=== PATIENT | female | born 1985 | race Caucasian/White ===

== ENCOUNTER → 2018-01-12 14:00 | Outpatient (CLI) | payer SELFPAY ==
--- NOTE | 2018-01-12 14:00 | DT_ITS ---
This patient was seen during an EMR downtime January 11, 2018 - January 18, 2018. This patient may have a combination of paper and electronic documentation or all paper documentation. All documentation is viewable within the e-chart portion of [facility] for each patient visit.
--- NOTE | 2018-01-12 14:00 | DT_ITS ---
This patient was seen during an EMR downtime January 11, 2018 - January 18, 2018. This patient may have a combination of paper and electronic documentation or all paper documentation. All documentation is viewable within the e-chart portion of [facility] for each patient visit.
[2018-01-17 10:04] LABS: Chlamydia Trachomatis by PCR Negative (Negative); Neisserai gonorrhoeae by PCR Negative (Negative)
[2018-01-17 10:05] LABS: Probe Check PASS; Sample Adequacy Control PASS; Specimen Processing Control PASS
[2018-01-26 14:58] LABS: HPV Reflexed? NOT INDICATED
== END ==
PROVIDERS: Visit Provider Obstetrics & Gynecology
DX: Z11.3 Encounter for screening for infections with a predominantly sexual mode of transmission (principal); Z12.4 Encounter for screening for malignant neoplasm of cervix
CPT/HCPCS: 87491; 87591; 88175; G0145

== ENCOUNTER → 2018-02-08 15:36 | Outpatient (CLI) | payer SELFPAY ==
[2018-02-08 16:35] LABS: Color, Urine Yellow (Yellow); Glucose, Dipstick Normal (Normal); Ketone-Dipstick 5 mg/dl (Negative); Leukocyte Esterase-Dipstick Negative /ul (Negative); Nitrite-Dipstick Negative (Negative); Occult Blood-Urine Negative /ul (Negative); Protein-Dipstick Negative (Negative); Urine Bilirubin Dipstick Negative (Negative); Urine Clarity Clear (Clear); Urine Urobilinogen Normal (Normal)
[2018-02-08 16:38] LABS: Absolute Lymphocyte Count 1.46 X10^3/ul (0.83-4.51); Absolute Neutrophil Count 7.9 X10^3/uL (2.0-7.7); Basophil# 0.01 X10^3/uL; Basophil% 0.1 % (0-1); Eosinophil# 0.06 X10^3/uL; Eosinophils% 0.6 % (0-5); Hemoglobin 12.1 g/dl (12.0-15.0); Lymphocyte # 1.46 X10^3/ul (4.0); Lymphocyte % 14.6 % (19-41); Mean Corp Hgb Conc 33.6 g/gl (32-36); Mean Corpuscular Volume 89.3 fL (81-99); Mean Platelet Vol. 8.6 fl (6.2-12.0); Neutrophil # 7.91 X10^3/uL (2.7-7.7); Neutrophil % 79.4 % (47-70); Platelet Count 282 K/mm3 (150-450); RBC Distribution Width CV 14.4 % (11.6-14.6); RBC Distribution Width SD 47.1 fl (35.1-43.9); Red Blood Count 4.03 M/mm3 (4.2-5.4)
[2018-02-08 16:54] LABS: POSITIVE COUNT NO; POSITIVE DIFFERENTIAL NO; POSITIVE MORPHOLOGY NO
[2018-02-08 17:08] LABS: Thyroid Stim Hormone (TSH) 1.36 uIU/mL (0.358-3.74)
[2018-02-08 17:49] LABS: HIV - WCH Non-Reactive (Nonreactive); Rubella IgG 153.4 IU/mL
[2018-02-11 17:20] LABS: HEPATITIS B SURFACE AG Negative (Negative); Hep C Antibodies <0.1 s/co ratio (0.0-0.9)
[2018-02-12 05:01] LABS: Prenatal RPR NONREACTIVE (NONREACTIVE)
== END ==
PROVIDERS: Visit Provider Obstetrics & Gynecology
DX: Z34.82 Encounter for supervision of other normal pregnancy, second trimester (principal)
CPT/HCPCS: 36415; 81002; 84443; 85025; 86703; 86762; 86803; 87340

== ENCOUNTER → 2018-03-05 15:41 | Outpatient (CLI) | payer SELFPAY ==
[2018-03-05 17:27] LABS: Glucose Challenge Gest 1H 50g 129 mg/dL (70-140)
[2018-03-05 17:29] LABS: Hematocrit 34.2 % (37-47); Hemoglobin 11.6 g/dl (12.0-15.0); Mean Corp Hgb Conc 33.9 g/gl (32-36); Mean Corpuscular Hgb 30.3 pg (27.0-32.0); Mean Corpuscular Volume 89.3 fL (81-99); Mean Platelet Vol. 8.5 fl (6.2-12.0); Platelet Count 270 K/mm3 (150-450); RBC Distribution Width CV 13.9 % (11.6-14.6); RBC Distribution Width SD 45.1 fl (35.1-43.9); Red Blood Count 3.83 M/mm3 (4.2-5.4)
[2018-03-05 17:39] LABS: Scan Indicated on CBC? Y/N NO
== END ==
PROVIDERS: Visit Provider Obstetrics & Gynecology
DX: Z34.82 Encounter for supervision of other normal pregnancy, second trimester (principal)
CPT/HCPCS: 82950; 85027; 86850

== ENCOUNTER → 2018-04-30 17:03 | Outpatient (CLI) | payer SELFPAY ==
[2018-04-30 19:39] LABS: Group B Strep DNA By PCR POSITIVE (Negative); Probe Check PASS
== END ==
PROVIDERS: Visit Provider Obstetrics & Gynecology
DX: Z36.85 Encounter for antenatal screening for Streptococcus B (principal)
CPT/HCPCS: 87653

== ENCOUNTER 2018-06-01 08:00 | Inpatient (IN) | payer SELFPAY ==
[2018-06-01 08:30] VITALS: BMI 30.8
[2018-06-01 09:00] LABS: Hemoglobin 12.6 g/dl (12.0-15.0); Mean Corp Hgb Conc 34.1 g/gl (32-36); Mean Corpuscular Hgb 28.8 pg (27.0-32.0); Mean Corpuscular Volume 84.5 fL (81-99); Mean Platelet Vol. 9.5 fl (6.2-12.0); Platelet Count 295 K/mm3 (150-450); RBC Distribution Width CV 14.5 % (11.6-14.6); RBC Distribution Width SD 43.8 fl (35.1-43.9); Red Blood Count 4.38 M/mm3 (4.2-5.4); Scan Indicated on CBC? Y/N NO; White Blood Count 9.8 K/mm3 (4.4-11.0)
[2018-06-01] MEDS: Oxytocin 30 units/NS 500 ml 30 UNITS/500 ML IV.SOLN 334 UNITS IV (12:17)
[2018-06-01] MEDS: Oxytocin 30 units/NS 500 ml 30 UNITS/500 ML IV.SOLN 167 UNITS IV (12:50)
--- NOTE | 2018-06-01 20:01 | PCM.OB.VAG ---
Vaginal Delivery Maternal Presentation: Active Labor Presents at 40 1/7 wks with painful UCs 6 cm. Amniotic Membrane Rupture Type: Artificial Amniotic Fluid Description: Clear Final JAMIN: 05/31/18 Gestational age: 40 Weeks and 1 Days Date of Procedure: 06/01/18 Pre-Operative Diagnosis: 40 1/7 wk labor Post-Operative Diagnosis: same Surgery/ Procedure Performed: Spontaneous Vaginal Delivery Type of Anesthesia: None Description of Procedure: of a mcduffie viable female over intact perineum to superficial lacerations. Head delivered JILL. Nuchal cord x one reduced at delivery. Shoulders delivered easily. Infant to maternal abdomen with spont cry. Delayed cord clamping employed. Cord lamped x two and cut. Routine cord blood for typing collected. PP exam: 1st degree periclitoral laceration and bilateral anterior labial 1st deg lacerations, all hemostatic after pressure held with RayTec gauze. Posterior perineum with 1st deg laceration. Repaired under 1% lidocaine local with 3-0 Vicryl to hemostatic , intact. EBL 350 cc Pt and tolerated delivery well. To recovery stable condition Ray Cal counts correct x two. Presentation: Vertex, JILL Placental Delivery Description: Spontaneous, Expressed Placenta Disposition: [facility] Cord Vessel Description: 3 Vessels Nuchal Cord Compression: Without compression Cord Entanglement: Around neck x 1, loose Estimated Blood Loss: 350 A gender: Female (1 minute): 9 (5 minute): 9 Episiotomy Description: None Laceration: 1st degree - 1st degree posterior perineal laceration noted. Multiple first degree lacerations anteriorly-- periclitoral and bilateral anterior labia Medications given after delivery: IV Pitocin Complications: None
--- NOTE | 2018-06-01 20:12 | PCM.DCVAG ---
Discharge Diet: No Restrictions Discharge Activity: May Shower, May Take a Tub Bath May resume sexual activity in: 4-6 weeks Additional Activity Instructions:: Nothing in the vagina for 4-6 weeks. You may return to work/school in 6 weeks. Additional Instructions: If you experience any of the following, contact your healthcare provider. Bleeding that soaks a pad every hour for 2 hours Fever 100.4 or higher Unrelieved abdominal pain Problems urinating (including inability to urinate or burning while urinating). Visual changes Severe headache Flu-like symptoms Pain or redness in one of both of your breasts Pain, warmth, tenderness or swelling in your legs, especially the calf area Frequent nausea and vomiting Symptoms of depression or anxiety If you experience any of the following, call 911 or go to the nearest Emergency Room. Chest pain Problems breathing Seizure activity Partial or complete paralysis of a body part, slurred speech, weakness or drooping of the face, or a sudden inability to walk or hold your balance Allergies/Adverse Reactions: Allergies No Known Allergies Allergy (Verified 06/01/18 08:35) Medications to take at Discharge Multivitamins,Therapeutic [Multivitamin] 1 tablet PO DAILY 06/01/18 Please Follow Up With: Anyi Wilkins MD - [phone] When: Call to make an appointment with your doctor in 6 weeks. If you had elevated Blood Pressure or 4th degree laceration you will need to be seen in 2 weeks. Primary Care Physician: Manjit Jaeger [Primary Care Provider] - Test Results: Test results from this visit will be discussed in further detail at your follow-up appointment, if applicable. Proposed Discharge Date: 06/03/18
--- NOTE | 2018-06-01 20:13 | DCINST_ITS ---
Discharge Diet: No Restrictions Discharge Activity: May Shower, May Take a Tub Bath May resume sexual activity in: 4-6 weeks Additional Activity Instructions:: Nothing in the vagina for 4-6 weeks. You may return to work/school in 6 weeks. Additional Instructions: If you experience any of the following, contact your healthcare provider. * Bleeding that soaks a pad every hour for 2 hours * Fever 100.4 or higher * Unrelieved abdominal pain * Problems urinating (including inability to urinate or burning while urinating). * Visual changes * Severe headache * Flu-like symptoms * Pain or redness in one of both of your breasts * Pain, warmth, tenderness or swelling in your legs, especially the calf area * Frequent nausea and vomiting * Symptoms of depression or anxiety If you experience any of the following, call 911 or go to the nearest Emergency Room. * Chest pain * Problems breathing * Seizure activity * Partial or complete paralysis of a body part, slurred speech, weakness or drooping of the face, or a sudden inability to walk or hold your balance Allergies/Adverse Reactions: Allergies No Known Allergies Allergy (Verified 06/01/18 08:35) Medications to take at Discharge Multivitamins,Therapeutic [Multivitamin] 1 tablet PO DAILY 06/01/18 Please Follow Up With: Anyi Wilkins MD - [phone] When: Call to make an appointment with your doctor in 6 weeks. If you had elevated Blood Pressure or 4th degree laceration you will need to be seen in 2 weeks. Primary Care Physician: Manjit Jaeger [Primary Care Provider] - Test Results: Test results from this visit will be discussed in further detail at your follow- up appointment, if applicable. Proposed Discharge Date: 06/03/18
[2018-06-01 20:15] VITALS: BP 147/97; PULSE 88; RESP 18; TEMP 36.8
[2018-06-02 00:35] VITALS: BP 132/78; PULSE 69; RESP 18; TEMP 36.6
[2018-06-02 04:36] VITALS: BP 121/84; PULSE 70; RESP 20; TEMP 36.6
--- NOTE | 2018-06-02 08:04 | PCM.PN.OB ---
Subjective: PPD#1 Doing well. no concerns. baby is nursing well. very happy no induction required. - Physical Exam General: Alert, Oriented x3, Cooperative, No apparent distress HEENT: Atraumatic Neck: Supple Abdomen: Soft - Fundus firm NT at 2-3 cm inferior to umbilicus Neurological: Cranial nerves II-XII grossly intact Psych/Mental Status: Normal Affect Vital Signs Temp Pulse Resp BP 97.8 F 70 20 H 121/84 H 06/02/18 04:36 06/02/18 04:36 06/02/18 04:36 06/02/18 04:36 Oxygen Delivery Method Room Air Weight: 79 kg Body Mass Index (BMI) 30.8 Intake and Output for Last 24 Hours 05/31/18 06/01/18 06/02/18 23:59 23:59 23:59 Intake Total 908 / 908 Output Total 1150 / 1150 Balance -242 / -242 Laboratory Tests Past 24 Hrs 06/01/18 06/01/18 06/01/18 08:30 08:30 15:15 WBC 9.8 RBC 4.38 Hgb 12.6 Hct 37.0 MCV 84.5 MCH 28.8 MCHC 34.1 RDW 14.5 RDW Differential 43.8 Plt Count 295 MPV 9.5 Blood Type A NEGATIVE Antibody Screen NEGATIVE Screen NEGATIVE Baby's Blood Type A POSITIVE Baby's KORTNEY NEGATIVE Medical Necessity - Tobacco Use Smoking Status: Never smoker Assessment/Plan PPD#1 40 1/7 wk GBS positive Stable pp. Continue routine care.
[2018-06-02] MEDS: Multivitamins,Therapeutic Tablet 1 TABLET PO (09:09)
[2018-06-02 09:10] VITALS: BP 132/80; PULSE 82; RESP 16; TEMP 36.7; O2SAT 97
[2018-06-02 11:54] VITALS: BP 123/74; PULSE 90; RESP 16; TEMP 36.6; O2SAT 98
[2018-06-02 15:45] VITALS: BP 130/87; PULSE 75; RESP 16; TEMP 36.6; O2SAT 100
[2018-06-02 19:55] VITALS: BP 125/81; PULSE 76; RESP 18; TEMP 37.1; O2SAT 98
[2018-06-03 02:38] VITALS: BP 124/84; PULSE 66; RESP 16; TEMP 36.2; O2SAT 97
[2018-06-03 08:00] VITALS: BP 118/81; PULSE 75; RESP 16; TEMP 36.6
--- NOTE | 2018-06-03 08:18 | PCM.PN.OB ---
Subjective: PPD#2 GBS positive. A neg and A positive. RhoGAM given. no concerns voiced. Minimal cramping and bleeding. - Physical Exam General: Alert, Oriented x3, Cooperative, No apparent distress HEENT: Atraumatic Vital Signs Temp Pulse Resp BP Pulse Ox 97.2 F L 66 16 124/84 H 97 06/03/18 02:38 06/03/18 02:38 06/03/18 02:38 06/03/18 02:38 06/03/18 02:38 Oxygen Delivery Method Room Air Weight: 79 kg Body Mass Index (BMI) 30.8 Intake and Output for Last 24 Hours 06/01/18 06/02/18 06/03/18 23:59 23:59 23:59 Intake Total 908 / 908 Output Total 1150 / 1150 Balance -242 / -242 Medical Necessity - Tobacco Use Smoking Status: Never smoker Assessment/Plan PPD#2 40 1/7 wk GBS positive Stable pp. Dischg home. RTO in 6 wk for pp check, prn sooner.
== END 2018-06-03 13:35 | disposition home or self-care (01) | DRG 806 ==
PROVIDERS: Admitting Provider Obstetrics & Gynecology; Family Provider Family Medicine; PCP Family Medicine; Visit Provider Obstetrics & Gynecology
DX: O48.0 Post-term pregnancy (principal); O98.82 Other maternal infectious and parasitic diseases complicating childbirth; Z37.0 Single live birth; Z3A.40 40 weeks gestation of pregnancy; B95.1 Streptococcus, group B, as the cause of diseases classified elsewhere; O69.81X0 Labor and delivery complicated by cord around neck, without compression, not applicable or unspecified; O70.0 First degree perineal laceration during delivery; O71.89 Other specified obstetric trauma
CPT/HCPCS: 59025; 59050; 85027; 85461; 86850; 86900; 90384; 99218; G0378; J2790